=== PATIENT | female | born 1995 | race American Indian/Alaskan Native ===

== ENCOUNTER 2020-02-27 12:29 | Emergency (ER) | payer SELFPAY ==
[2020-02-27 12:35] VITALS: BP 136/89
[2020-02-27] MEDS ORDERED: HYDROcodone/ACETAMINOPHEN 7.5-325MG TAB PO ONE (12:42)
[2020-02-27] MEDS ORDERED: LIDOCAINE-MPF (1%) 10 MG/1 ML VIAL 5 ML INFILTRATI ONE (12:42)
--- NOTE | 2020-02-27 12:46 | Emergency Department Report ---
Abscess Boil HPI - HPI Chief Complaint: Skin/Abscess/Foreign Body Stated Complaint: CHEST AND BACK PAIN, BUMP UNDER ARM Time Seen by Provider: 02/27/20 12:41 Duration: >1 Week Location: Other Severity: Moderate History: Yes Pain, Yes Purulent Drainage, Yes Previous History, No Fever, No Numbness, No Foreign Body, No Insect Bite HPI: 24 YO AA FEMALE WITH A/C HIDRADENTIS. NOW OF L UNDERARM. IT IS DRAINING. SHE IS IN PAIN. HAS NO PCP. SHE HAS NOT SEEN GEN SURG FOR DEBRIDEMENT. SHE ADDS MY "VAGINA SMELLS.". NO VAG DC. LMP LAST WEEK. NO ABD PAIN. NO FEVER OR CHILLS. NO BACK PAIN Home Medications: Previous Rx's Medication Instructions Recorded Last Taken Type Fluconazole [Diflucan TAB] 150 mg PO ONCE #2 tablet 02/27/20 Unknown Rx Sulfamethoxazole/Trimethoprim 1 each PO BID #14 tablet 02/27/20 Unknown Rx [Bactrim DS TAB] Allergies/Adverse Reactions: Allergies Allergy/AdvReac Type Severity Reaction Status Date / Time No Known Allergies Allergy Unverified 02/27/20 12:31 ED Review of Systems ROS: Stated complaint: CHEST AND BACK PAIN, BUMP UNDER ARM Other details as noted in HPI Comment: All other systems reviewed and negative ED Past Medical Hx - Past Medical History Previous Medical History?: No - Surgical History Past Surgical History?: No - Family History Family history: no significant - Social History Smoking Status: Current Every Day Smoker Substance Use Type: None - Medications Home Medications: Home Medications Medication Instructions Recorded Confirmed Last Taken Type Fluconazole [Diflucan TAB] 150 mg PO ONCE #2 tablet 02/27/20 Unknown Rx Sulfamethoxazole/Trimethoprim 1 each PO BID #14 tablet 02/27/20 Unknown Rx [Bactrim DS TAB] ED Abscess Boil Physical Exam - Exam General: Vital signs noted. No distress. Alert and acting appropriately. Size: 4 cm Exam: Yes Tenderness, Yes Normal Neurologic Exam, Yes Normal Circulation, No Fluctuance, No Surrounding Cellulites/Erythema, No Lymphangitis, No Crepitation, No Heart Murmur ED Course Vital Signs 02/27/20 12:31 Temperature 98.2 F Pulse Rate 81 Respiratory 16 Rate Blood Pressure 136/89 O2 Sat by Pulse 100 Oximetry Critical care attestation.: If time is entered above; I have spent that time in minutes in the direct care of this critically ill patient, excluding procedure time. ED Medical Decision Making - Medical Decision Making A/C ISSUES VAG ODOR- TO BE WORKED UP WITH OBGYN PT EDUCATED ON CARE OF HER HIDRADENITIS DC HOME WITH PCP-OBGYN- AND GEN SURGERY FOLLOW UP MEDICATED FOR PAIN AND IM ROCEPHIN IN ER NON ILL NON TOXIC NO FEVER AMBULATORY TAKING PO Vital Signs 02/27/20 12:31 Temperature 98.2 F Pulse Rate 81 Respiratory 16 Rate Blood Pressure 136/89 O2 Sat by Pulse 100 Oximetry - Differential Diagnosis A.C ABSCESS ED Disposition Clinical Impression: Hidradenitis, Vaginal odor Disposition: DC-01 TO HOME OR SELFCARE Is pt being admited?: No Does the pt Need Aspirin: No Condition: Stable Instructions: Abscess (ED) Additional Instructions: WARM BATHS WITH EPSOM SALT SOAKS MOTRIN OR TYLENOL FOR MILD PAIN ULTRAM FOR SEVERE PAIN FOLLOW UP WITH PCP REFERRAL BELOW FOLLOW UP WITH GEN SURGERY FOR EVAL 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
== END 2020-02-27 13:18 | disposition home or self-care (01) ==
LOC: ED 12:29
DX: L73.2 Hidradenitis suppurativa (principal); N89.8 Other specified noninflammatory disorders of vagina; F17.200 Nicotine dependence, unspecified, uncomplicated; Z79.899 Other long term (current) drug therapy
CPT/HCPCS: 96372; 99282; J0696